=== PATIENT | female | born 1960 | race Caucasian/White ===

== ENCOUNTER 2025-07-05 14:12 | Emergency (ER) | payer OTHER, SELFPAY ==
--- OUTSIDE RECORDS SUMMARY | 2004-10-31 09:30 | XMS_ITS | Continuity of Care Document ---
Author Organization [facility] Address [address] [place] [address] [place] [address] Phone Care Team Providers Care Pit Steward Name Role Phone Nelson Amaya MD Unavailable Unavailable Advance Directives Directive Yes / No Effective Date File Name No Information Encounters Encounter Description Practice Location Reason(s) For Visit Diagnoses Date Provider Providers Copied on Encounter [facility], [address], [place], [place], [address], [place] tel:[phone] SEC Ryan [place] Professional No Information 4-200 5 Monique Damon. [address] [facility] [address], [place], [place], [address], [place]. tel:[phone] Family History Family Member Type Diagnosis Age At Onset No Information Payers Payer name Insurance type Covered constitution party ID Authoriza tion(s) No Information Social History Type Description Quantity Date Captured Comments Sex Female Smoking Status No Information Chief Complaint And Reason For Visit No Information Reason For Referral Reason For Referral No Information History Of Present Illness Encounter Date Complaint History Of Prese nt Illness No Information Functional Status Date Functional Assessmen t No Information Instructions Date Instruction Additional Infor mation No Information Assessments Type Assessment Date No Information Patient Care Teams Name Effective Dates (start - stop) Status Members No Information
--- OUTSIDE RECORDS SUMMARY | 2004-10-31 09:30 | XMS_ITS | Continuity of Care Document ---
Author Organization [facility] Address [address] [place] [address] [place] [address] Phone Care Team Providers Care Radar Repairer Name Role Phone Nelson Amaya MD Unavailable Unavailable Advance Directives Directive Yes / No Effective Date File Name No Information Encounters Encounter Description Practice Location Reason(s) For Visit Diagnoses Date Provider Providers Copied on Encounter [facility], [address], [place], [place], [address], [place] tel:[phone] SEC Ryan [place] Professional No Information 4-200 5 Monique Damon. [address] [facility] [address], [place], [place], [address], [place]. tel:[phone] Family History Family Member Type Diagnosis Age At Onset No Information Payers Payer name Insurance type Covered republican ID Authoriza tion(s) No Information Social History [...]
--- OUTSIDE RECORDS SUMMARY | 2004-10-31 09:30 | XMS_ITS | Continuity of Care Document ---
Author Organization [facility] Address [address] [place] [address] [place] [address] Phone Care Team Providers Care Science Specialist Name Role Phone Nelson Amaya MD Unavailable Unavailable Advance Directives Directive Yes / No Effective Date File Name No Information Encounters Encounter Description Practice Location Reason(s) For Visit Diagnoses Date Provider Providers Copied on Encounter [facility], [address], [place], [place], [address], [place] tel:[phone] SEC Ryan [place] Professional No Information 4-200 5 Monique Damon. [address] [facility] [address], [place], [place], [address], [place]. tel:[phone] Family History Family Member Type Diagnosis Age [...]
--- OUTSIDE RECORDS SUMMARY | 2004-10-31 09:30 | XMS_ITS | Continuity of Care Document ---
Author Organization [facility] Address [address] [place] [address] [place] [address] Phone Care Team Providers Care Field Artillery Operations Specialist Name Role Phone Nelson Amaya MD Unavailable Unavailable Advance Directives Directive Yes / No Effective Date File Name No Information Encounters Encounter Description Practice Location Reason(s) For Visit Diagnoses Date Provider Providers Copied on Encounter [facility], [address], [place], [place], [address], [place] tel:[phone] SEC Ryan [place] Professional No Information 4-200 5 Monique Damon. [address] [facility] [address], [place], [place], [address], [place]. tel:[phone] Family History Family Member Type Diagnosis Age At Onset No Information Payers Payer name Insurance type Covered libertarian ID Authoriza tion(s) No Information Social History [...]
--- OUTSIDE RECORDS SUMMARY | 2004-10-31 09:30 | XMS_ITS | Continuity of Care Document ---
Author Organization [facility] Address [address] [place] [address] [place] [address] Phone Care Team Providers Care Drop Worker Name Role Phone Nelson Amaya MD Unavailable Unavailable Advance Directives Directive Yes / No Effective Date File Name No Information Encounters Encounter Description Practice Location Reason(s) For Visit Diagnoses Date Provider Providers Copied on Encounter [facility], [address], [place], [place], [address], [place] tel:[phone] SEC Ryan [place] Professional No Information 4-200 5 Monique Damon. [address] [facility] [address], [place], [place], [address], [place]. tel:[phone] Family History Family Member Type Diagnosis Age [...]
--- OUTSIDE RECORDS SUMMARY | 2004-10-31 09:30 | XMS_ITS | Continuity of Care Document ---
Author Organization [facility] [place] [facility] Address [address] [place] [address] [place] [address] Phone Care Team Providers Care Milling Operator Name Role Phone Nelson Amaya MD Unavailable Unavailable Advance Directives Directive Yes / No Effective Date File Name No Information Encounters Encounter Description Practice Location Reason(s) For Visit Diagnoses Date Provider Providers Copied on Encounter [facility], [address], [place], [place], [address], [place] tel:[phone] SEC Ryan [place] Professional No Information 4-200 5 Monique Damon. [address] [facility] [address], [place], [place], [address], [place]. tel:[phone] Family History Family Member Type Diagnosis Age At Onset No Information Payers Payer name Insurance type Covered green party ID Authoriza tion(s) No Information Social [...]
--- OUTSIDE RECORDS SUMMARY | 2004-10-31 09:30 | XMS_ITS | Continuity of Care Document ---
Author Organization [facility] Address [address] [place] [address] [place] [address] Phone Care Team Providers Care Gate Operator Name Role Phone Nelson Amaya MD Unavailable Unavailable Advance Directives Directive Yes / No Effective Date File Name No Information Encounters Encounter Description Practice Location Reason(s) For Visit Diagnoses Date Provider Providers Copied on Encounter [facility], [address], [place], [place], [address], [place] tel:[phone] SEC Ryan [place] Professional No Information 4-200 5 Monique Damon. [address] [facility] [address], [place], [place], [address], [place]. tel:[phone] Family History Family Member Type Diagnosis Age [...]
--- OUTSIDE RECORDS SUMMARY | 2004-10-31 09:30 | XMS_ITS | Continuity of Care Document ---
Author Organization [facility] Address [address] [place] [address] [place] [address] Phone Care Team Providers Care Veterinary Inspector Name Role Phone Nelson Amaya MD Unavailable Unavailable Advance Directives Directive Yes / No Effective Date File Name No Information Encounters Encounter Description Practice Location Reason(s) For Visit Diagnoses Date Provider Providers Copied on Encounter [facility], [address], [place], [place], [address], [place] tel:[phone] SEC Ryan [place] Professional No Information 4-200 5 Monique Damon. [address] [facility] [address], [place], [place], [address], [place]. tel:[phone] Family History Family Member Type Diagnosis Age [...]
--- OUTSIDE RECORDS SUMMARY | 2004-10-31 09:30 | XMS_ITS | Continuity of Care Document ---
Author Organization [facility] Address [address] [place] [address] [place] [address] Phone Care Team Providers Care Dependency Program Director Name Role Phone Nelson Amaya MD Unavailable Unavailable Advance Directives Directive Yes / No Effective Date File Name No Information Encounters Encounter Description Practice Location Reason(s) For Visit Diagnoses Date Provider Providers Copied on Encounter [facility], [address], [place], [place], [address], [place] tel:[phone] SEC Ryan [place] Professional No Information 4-200 5 Monique Damon. [address] [facility] [address], [place], [place], [address], [place]. tel:[phone] Family History Family Member Type Diagnosis Age [...]
--- OUTSIDE RECORDS SUMMARY | 2004-10-31 09:30 | XMS_ITS | Continuity of Care Document ---
Author Organization [facility] Address [address] [place] [address] [place] [address] Phone Care Team Providers Care Pigment Furnace Tender Name Role Phone Nelson Amaya MD Unavailable Unavailable Advance Directives Directive Yes / No Effective Date File Name No Information Encounters Encounter Description Practice Location Reason(s) For Visit Diagnoses Date Provider Providers Copied on Encounter [facility], [address], [place], [place], [address], [place] tel:[phone] SEC Ryan [place] Professional No Information 4-200 5 Monique Damon. [address] [facility] [address], [place], [place], [address], [place]. tel:[phone] Family History Family Member Type Diagnosis Age [...]
--- OUTSIDE RECORDS SUMMARY | 2004-10-31 09:30 | XMS_ITS | Continuity of Care Document ---
Author Organization [facility] Address [address] [place] [address] [place] [address] Phone Care Team Providers Care Unix Engineer Name Role Phone Nelson Amaya MD Unavailable Unavailable Advance Directives Directive Yes / No Effective Date File Name No Information Encounters Encounter Description Practice Location Reason(s) For Visit Diagnoses Date Provider Providers Copied on Encounter [facility], [address], [place], [place], [address], [place] tel:[phone] SEC Ryan [place] Professional No Information 4-200 5 Monique Damon. [address] [facility] [address], [place], [place], [address], [place]. tel:[phone] Family History Family Member Type Diagnosis Age At Onset No Information Payers Payer name Insurance type Covered alliance party ID Authoriza tion(s) No Information Social [...]
--- OUTSIDE RECORDS SUMMARY | 2004-10-31 09:30 | XMS_ITS | Continuity of Care Document ---
Author Organization [facility] Address [address] [place] [address] [place] [address] Phone Care Team Providers Care Locomotive Supervisor Name Role Phone Nelson Amaya MD Unavailable Unavailable Advance Directives Directive Yes / No Effective Date File Name No Information Encounters Encounter Description Practice Location Reason(s) For Visit Diagnoses Date Provider Providers Copied on Encounter [facility], [address], [place], [place], [address], [place] tel:[phone] SEC Ryan [place] Professional No Information 4-200 5 Monique Damon. [address] [facility] A, [place], [place], [address], [place]. tel:[phone] Family History Family Member Type Diagnosis Age [...]
--- OUTSIDE RECORDS SUMMARY | 2004-10-31 09:30 | XMS_ITS | Continuity of Care Document ---
Author Organization [facility] Address [address] [place] [address] [place] [address] Phone Care Team Providers Care Material Flow Analyst Name Role Phone Nelson Amaya MD Unavailable Unavailable Advance Directives Directive Yes / No Effective Date File Name No Information Encounters Encounter Description Practice Location Reason(s) For Visit Diagnoses Date Provider Providers Copied on Encounter [facility], [address], [place], [place], [address], [place] tel:[phone] SEC Ryan [place] Professional No Information 4-200 5 Monique Damon. [address] [facility] [place] [address], [place], [place], [address], [place]. tel:[phone] Family History Family Member Type Diagnosis Age [...]
--- OUTSIDE RECORDS SUMMARY | 2004-10-31 09:30 | XMS_ITS | Continuity of Care Document ---
Author Organization [facility] Address [address] [place] [address] [place] [address] Phone Care Team Providers Care Truant Officer Name Role Phone Nelson Amaya MD Unavailable Unavailable Advance Directives Directive Yes / No Effective Date File Name No Information Encounters Encounter Description Practice Location Reason(s) For Visit Diagnoses Date Provider Providers Copied on Encounter [facility], [address], [place], [place], [address], [place] tel:[phone] SEC Ryan [place] Professional No Information 4-200 5 Monique Damon. [address] [facility] [address], [place], [place], [address], [place]. tel:[phone] Family History Family Member Type Diagnosis Age [...]
--- OUTSIDE RECORDS SUMMARY | 2004-10-31 09:30 | XMS_ITS | Continuity of Care Document ---
Author Organization [facility] Address [address] [place] [address] [place] [address] Phone Care Team Providers Care Metal Coater Name Role Phone Nelson Amaya MD Unavailable Unavailable Advance Directives Directive Yes / No Effective Date File Name No Information Encounters Encounter Description Practice Location Reason(s) For Visit Diagnoses Date Provider Providers Copied on Encounter [facility], [address], [place], [place], [address], [place] tel:[phone] SEC Ryan [place] Professional No Information 4-200 5 Monique Damon. [address] [facility] [address], [place], [place], [address], [place]. tel:[phone] Family History Family Member Type Diagnosis Age [...]
--- OUTSIDE RECORDS SUMMARY | 2004-10-31 09:30 | XMS_ITS | Continuity of Care Document ---
Author Organization [facility] Address [address] [place] [address] [place] [address] Phone Care Team Providers Care Digital Marketing Strategist Name Role Phone Nelson Amaya MD Unavailable Unavailable Advance Directives Directive Yes / No Effective Date File Name No Information Encounters Encounter Description Practice Location Reason(s) For Visit Diagnoses Date Provider Providers Copied on Encounter [facility], [address], [place], [place], [address], [place] tel:[phone] SEC Ryan [place] Professional No Information 4-200 5 Monique Damon. [address] [facility] [address], [place], [place], [address], [place]. tel:[phone] Family History Family Member Type Diagnosis Age [...]
--- NOTE | ~2025-07-05 | XR_ITS ---
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 Findings: No acute fracture or malalignment. Severe degenerative changes of the first metacarpal carpal joint Soft tissues unremarkable. Impression: No acute fracture or malalignment. Reviewed, dictated and finalized at location P. TER RUST ERADICATOR Impression: No acute fracture or malalignment.
--- OUTSIDE RECORDS SUMMARY | 2025-07-05 14:15 | XMS_ITS | Encounter Summary ---
Author Organization [facility] Address [address] [place] [address] Phone Care Team Providers Care Integrity Manager Name Role Phone Anita Rodriguez APRN, SENIOR BIOSTATISTICIAN/GROUP LEADER Unavailable [phone] James Plummer MD Unavailable [phone] Milagro Means APRN, SENIOR BIOSTATISTICIAN/GROUP LEADER Primary [facility] Eric Peres DPCassie Unavailable Unavailable Reason for Visit * Reason Comments Medication Refill Encounter Details Date Type Department Care Team (Late st Contact Info) Description 05/29/2025 Refill [facility] - Primary Care - [place] [address] [place] [address] Milagro Means APRN, SENIOR BIOSTATISTICIAN/GROUP LEADER [address] [place] [address] Medication Refill Social History Tobacco Use Types Packs/Day Years Used Date Smoking Tobacco: Never Smokeless Tobacco: Never Alcohol Use Standard Drinks/Week Comments Yes 0 (1 standard drink = 0.6 oz pur e alcohol) occasional wine PHQ-2 Answer Date Recorded Total Score - Questions 1-9 0 03/21 Education Answer Date Recorded What is the highest level of school you have completed or the highest degree you have received? Bachelor's degree (e.g., BA, AB, BS) 08/10/2020 Sexually Active Control Partners Comments Yes Male Comments No Sex and Gender Information Value Date Recorded Sex Assigned at Not on file Legal Sex Female 10:44 PM CDT Gender Identity Female 11/18/2024 2:56 PM CDT Sexual Orientation Straight 11/18/2024 2: 56 PM CDT Occupation Industry Job Start Date Job End Date [employer] Not on file Not on file Not on file documented as of this encounter Plan of Treatment Upcoming Encounters Date Type Department Care Team (Late st Contact Info) Description 10/12/2025 3:45 PM PRE PRESS OPERATOR Office Visit [facility] - Primary Care - [place] [address] [place] [address] Milagro Means APRN, SENIOR BIOSTATISTICIAN/GROUP LEADER [address] [place] [address] documented as of this encounter Visit Diagnoses Diagnosis Gastroesophageal reflux disease without esophagitis Esophageal reflux documented in this encounter Additional Health Concerns Assessment Noted Time PHQ-9 Depression Total Score: 0 04/14/20 25 3:43 PM CDT documented as of this encounter Care Teams Integrity Manager Relationship Specialty Start Date End Date Milagro Means APRN, SENIOR BIOSTATISTICIAN/GROUP LEADER [address] [place] [address] PCP - General Advanced Practice Nurse 02/18/18 Anita Rodriguez APRN, SENIOR BIOSTATISTICIAN/GROUP LEADER Nurse Practitioner Obstetrics & Gynecology 11/24/15 James Plummer MD General Surgery 07/09/17 Eric Peres DPM Podiatry 03/29/22 documented as of this encounter
--- OUTSIDE RECORDS SUMMARY | 2025-07-05 14:15 | XMS_ITS | Clinical Summary ---
Author Organization [facility] Address [address] [place] [address] Care Team Providers Care Burglary Investigator Name Role Phone Bridger Ruvalcaba MD Primary Care Provider + Anita Rodriguez NP Unavailable [phone] Allergies Active Allergy Reactions Criticality Noted Date Comments Codeine Unknown Erythromycin Hives Medium Reaction: Hives, Medications omeprazole (PriLOSEC) 40 mg capsule take 1 capsule by oral route every day before a meal 0 0 04/22/20 14 Active fluticasone (FLONASE) 50 mcg/actuation nasal spray Administer into each nostril. 12/19/19 18 Active SYNTHROID 50 mcg tablet TAKE 1 TABLET BY MOUTH ONCE DAILY IN THE BOOT REPAIRER BEFORE BREAKFAST 90 tablet 1 06/18/20 18 Active atorvastatin (LIPITOR) 10 mg tablet Take 1 tablet (10 mg total) by mouth daily 05/09/20 19 Active albuterol HFA (PROVENTIL HFA,VENTOLIN HFA,PROAIR HFA) 90 mcg/actuation inhaler Inhale 1-2 puffs every 6 (six) hours as needed 12/19/19 18 Active cetirizine (ZyrTEC) 10 mg tablet 10/17/19 23 Active montelukast (SINGULAIR) 10 mg tablet Take 1 tablet (10 mg total) by mouth nightly 09/05/19 23 Active cholecalciferol (VITAMIN D-3) 2000 unit capsule 1 capsule (2,000 Units total) Active omega-3 fatty acids-fish oil 300-1,000 mg capsule Take 2 capsules (2 g total) by mouth daily Active oxyCODONE (ROXICODONE) 5 mg immediate release tabletIndications:P ain Take 1 tablet (5 mg total) by mouth every 4 (four) hours as needed for pain 15 tablet 04/04/20 23 Active metroNIDAZOLE (METROGEL) 0.75 % (37.5mg/5 gram) vaginal gelIndications:Bact erial Vaginosis Apply to vagina nightly for 5 nights. 70 g 02/07/20 24 Active Additional Information Patient not taking.Reported on 09/08/2024 benzonatate (TESSALON) 200 mg capsuleIndications: Acute nasopharyngitis Take 1 capsule (200 mg total) by mouth 3 (three) times a day as needed for cough keep tessalon out of reach of children, especially children under the age of 10, due to possible serious risk such as if ingested by children under the age of 10. 30 capsule 05/04/20 24 Active Additional Information Patient not taking.Reported on 09/08/2024 ondansetron ODT (ZOFRAN-ODT) 4 mg disintegrating tabletIndications:I nfluenza A,Nausea and vomiting, unspecified vomiting type Take 1 tablet (4 mg total) by mouth every 8 (eight) hours as needed for nausea or vomiting 10 tablet 09/08/19 25 Active semaglutide (OZEMPIC) 0.25 mg or 0.5 mg (2 mg/3 mL) pen injector injection Inject 0.5 mg under the skin once a week 03/09/20 25 Active amoxicillin-clavula arlet (AUGMENTIN) 875-125 mg per tablet Take 1 tablet by mouth 2 (two) times a day for 7 days 14 tablet 05/30/20 25 025 methylPREDNISolone (MEDROL DOSEPACK) 4 mg Dosepack Take as directed on package. 21 tablet 05/30/20 25 025 nitrofurantoin monohydrate (MACROBID) 100 mg capsuleIndications: Urinary Tract/Genitourinary Infection Take 1 capsule (100 mg total) by mouth 2 (two) times a day for 5 days 10 capsule 06/14/20 25 025 Active Problems Problem Noted Date Diagnosed Date Gastroesophageal reflux disease 01/03/2014 Overview (11/22/2016): GERD (gastroesophageal reflux disease) Hypothyroidism 01/03/2014 Overview (11/24/2016): Hypothyroid Seasonal allergic rhinitis 01/03/2014 Overview (11/24/2016): Seasonal allergies Encounters Date Type Department Care Team Description 06/17/2025 Results Follow-Up [facility] Medical [facility] at [address] [phone] Sultana Peacock NP Urine culture Urine, clean voided 06/14/2025 8:30 AM CDT Office Visit [facility] Medical [facility] at [address] [phone] Britta You NP Acute cystitis with hematuria (Primary Dx) 06/14/2025 8:23 AM CDT - 06/14/2025 11:59 PM CD[place] [address] Acute cystitis with hematuria Discharge Disposition: Discharge to home or self care 05/30/2025 9:30 AM CDT Office Visit [facility] Medical [facility] at [address] [phone] Heide Gaston PA Acute non-recurrent pansinusitis (Primary Dx) from Last 3 Months Surgical History Surgery Date Site/Laterality Comments OTHER SURGICAL HISTORY 08/20/2004 - 08/19/2005 Appendicitis: Appendectomy OTHER SURGICAL HISTORY 08/20/1988 - 08/19/1989 Ovarian cyst: laparoscopy & cyst removal OTHER SURGICAL HISTORY 08/20/1986 - 08/19/1987 : 21 hr labor OTHER SURGICAL HISTORY 08/20/1982 - 08/19/1983 : spontaneous , D & C OTHER SURGICAL HISTORY Lap diagnostic x 2 APPENDECTOMY 1996 Medical History Medical History Date Comments Hx Other Medical 1995 Appendicitis; O utcome: successful Cyst of ovary 1985 Ovarian cyst Female infertility Infertility Disorder of thyroid Thyroid dise ase Hyperlipidemia Hyperlipidemia Hx Other Medical 1986 ; Outc ome: 40 week 6 lb(s) 13 oz Male Hx Other Medical 1982 ; Outc ome: Unknown sex GERD (gastroesophageal reflux disease) Family History Medical History Relation Name Comments Heart disease Father Prince Cardozo Heart disease ; Heart disease Maternal Grandfather Georges Potts Heart disease; Osteoporosis Maternal Grandmother Osteopo rosis; Breast cancer Mother Isabela Cardozo Cancer, breast ; Cancer Mother Isabela Cardozo Heart disease Mother's Sister 1 Keke Sky Heart dis ease; Hyperlipidemia Mother's Sister 2 Hyperlip idemia; Stroke Paternal Grandfather Prince Cardozo Sr. St [place]; Thyroid disease Sister Thyroid dise ase; Colon cancer Neg Hx Ovarian cancer Neg Hx Thyroid cancer Neg Hx Uterine cancer Neg Hx Relation Name Status Comments Father Prince Cardozo Maternal Grandfather Georges Potts Maternal Grandmother Mother Isabela Cardozo Mother's Sister 1 Keke Sky Mother's Sister 2 Paternal Grandfather Prince Cradozo Sr. Sister Social History Tobacco Use Types Packs/Day Years Used Date Smoking Tobacco: Never Smokeless Tobacco: Never Alcohol Use Standard Drinks/Week Comments Not Currently 0 (1 standard drink = 0.6 oz pur e alcohol) Humiliation, Afraid, Rape, and Kick questionnair e Answer Date Recorded Within the last year, have y ou been afraid of your partner or ex-partner? No 02/22/2024 Within the last year, have y ou been humiliated or emotionally abused in other ways by your partner or ex-partner? No Within the last year, have y ou been kicked, hit, slapped, or otherwise physically hurt by your partner or ex-partner? No 02/22/2024 Within the last year, have y ou been raped or forced to have any kind of sexual activity by your partner or ex-partner? No 02/22/2024 PHQ-2 Answer Date Recorded PHQ-2 Total Score (If total score is 3 or more points, staff should administer the PHQ-9) 0 03/13/2025 Personal Safety Answer Date Recorded Have you ever been in or are you currently in a harmful physical or emotional relationship or is someone making you feel afraid or unsafe? Denies 04/04/2023 Comments No Sex and Gender Information Value Date Recorded Sex Assigned at Not on file Legal Sex Female 1:53 AM RESAW FEEDER Gender Identity Not on file Sexual Orientation Not on file Obstetrics History Para Term AB IAB SAB Ectopic Multiple Livin g Live Births 2 1 1 1 1 1 1 Date Outcome GA Total Labor Labor/2nd/3rd Weight Sex Type Anes PTL Rose Mary A1 A5 Name Clin Term Vag-Spo nt SAB Last Filed Vital Signs Vital Sign Reading Time Taken Comments Blood Pressure 117/82 06/14/2025 8:30 AM CDT Pulse 72 06/14/2025 8:30 AM CDT Temperature 36.7 C (98.1 F) 06/14/2025 8:30 AM CDT Respiratory Rate 18 06/14/2025 8:30 AM CDT Oxygen Saturation 98% 06/14/2025 8:30 AM CDT Inhaled Oxygen Concentration - - Weight 74.4 kg (164 lb) 06/14/2025 8:30 AM CDT Height 154.9 cm (5' 1) 01/03/2025 1:40 PM CDT Body Mass Index 30.99 01/03/2025 1:40 PM CDT Plan of Treatment Health Maintenance Due Date Last Done Comments Colon Cancer Screening-Colonoscopy 1961 Hepatitis C Screening 1961 Hepatitis B Screening 1979 Pneumococcal vaccine <65 (2 of 2 - PCV) 08/20/2005 08/20/2004 Zoster Vaccine (1 of 2) 2011 Covid-19 Vaccine (4 - 2024-2 6 season) 2025 03/07/2022, 10/12/2020, 09/14/2020 Influenza Vaccine (#1) 2025 , 08/15/2021, 04/23/2019, Additional history exists Breast Cancer Screening-Mammogram 01/03/2026 01/03/2025, 08/24/2022, 08/18/2021, Additional history exists Cervical Cancer Screening 03/13/20262024, 02/22/2024, 12/22/2021, Additional history exists Depression Screening 03/13/2026 03/13/2025, 02/22/2024, 01/04/2023, Additional history exists Regular Well Visit/Exam 18-64 03/13/2026, 02/22/2024, 01/04/2023, Additional history exists DTaP/Tdap/Td Vaccine (3 - Td or Tdap) 12/11/2026 12/11/2016, 08/20/2005 Procedures Procedure Name Priority Date/Time Associated Diagnosis Comments POCT URINALYSIS DIPSTICK Routine 06/14/2025 8:33 AM CDT Acute cystitis with hematuria URINE CULTURE Routine 06/14/2025 8:23 AM CDT Acute cystitis with hematuria PAP, REFLEX HPV Routine 03/13/2025 9:59 AM CDT Well woman exam SCREENING MAMMOGRAM BILATERAL W ABRAM Schedule Routine, Read Routine (OP Routine) 01/03/2025 1:48 PM CDT Encounter for screening mammogram for malignant neoplasm of breast from Last 3 Months or Most Recently Relevant to Health Maintenance Results * (ABNORMAL) POCT urinalysis dipstick (06/14/2025 8:33 AM CDT) Color, Urine, POC Yellow Clarity, ur, POC Cloudy(A) Clear Glucose, ur, POC Negative Negative Bilirubin, ur, POC Negative Negative Ketones, ur, POC Negative Negative Specific [place], POC 1.025 1.003 - 1.030 Blood, ur, POC Hemolyzed, trace(A) Negative pH, ur, POC 5.5 5.0 - 8.0 Protein, ur, POC Negative Negative Urobilinogen, urine, POC 1.0 0.2 - 1.0 mg/dL Nitrite, ur, POC Negative Negative Leukocytes, ur, POC Small(A) Negative Lot Number [id number] Urine 06/14/2025 8:33 AM CDT Britta You NP POINT OF CARE TEST ORDERABLES Final Result * (ABNORMAL) Urine culture Urine, clean voided (06/14/2025 8:23 AM CDT) Report Final Report: Greater than or equal to 100,000 colonies/mL of Escherichia coli Greater than or equal to 100,000 colonies/mL of Klebsiella pneumoniae Plus growth of clinically insignificant bacterial rafael. (.) Comment:Testing performed by : [facility], [address] [place]., [address] Organism [facility] Organism [facility] Organism PLUS GROWTH OF CLINICALLY INSIGNIFICANT RAFAEL. [facility] Urine, clean voided 06/14/2025 8:23 AM CDT 06/14/2025 4:52 PM CDT Narrative NGHIANER CH - 06/17/2025 9:30 AM CDT Testing performed by [facility] Microbiology Laboratory ([phone]) Organism Antibiotic Method Susceptibility Escherichia coli Ampicillin INTERPRETATION Susceptible Escherichia coli Cefazolin INTERPRETATION Susceptible Escherichia coli Nitrofurantoin INTERPRETATION Susceptible Escherichia coli Gentamicin INTERPRETATION Susceptible Escherichia coli Trimethoprim with Sulfamethoxazole INTERPRETATION Susceptible Escherichia coli Meropenem INTERPRETATION Susceptible Escherichia coli Cefepime INTERPRETATION Susceptible Escherichia coli Ciprofloxacin INTERPRETATION Susceptible Escherichia coli Ceftazidime INTERPRETATION Susceptible Escherichia coli Ceftriaxone INTERPRETATION Susceptible Escherichia coli Piperacillin/Tazobactam INTERPRETATIO N Susceptible Escherichia coli Cephalexin INTERPRETATION Susceptible Escherichia coli Cefuroxime-axetil INTERPRETATION Susceptible Escherichia coli Cefdinir INTERPRETATION Susceptible Klebsiella pneumoniae Ampicillin INTERPRETATION Resistant Klebsiella pneumoniae Cefazolin INTERPRETATION Susceptible Klebsiella pneumoniae Nitrofurantoin INTERPRETATION Susceptible Klebsiella pneumoniae Gentamicin INTERPRETATION Susceptible Klebsiella pneumoniae Trimethoprim with Sulfamethoxazole INTERPRETATION Susceptible Klebsiella pneumoniae Meropenem INTERPRETATION Susceptible Klebsiella pneumoniae Cefepime INTERPRETATION Susceptible Klebsiella pneumoniae Ciprofloxacin INTERPRETATION Susceptible Klebsiella pneumoniae Ceftazidime INTERPRETATION Susceptible Klebsiella pneumoniae Ceftriaxone INTERPRETATION Susceptible Klebsiella pneumoniae Piperacillin/Tazobactam INTERPRE TATION Susceptible Klebsiella pneumoniae Cephalexin INTERPRETATION Susceptible Klebsiella pneumoniae Cefuroxime-axetil INTERPRETATION Susceptible Klebsiella pneumoniae Cefdinir INTERPRETATION Susceptible us Britta You NP LAB MICROBIOLOGY - GENERAL ORD ERABLES Final Result [facility] [address] Department [place] [address] * Pap, reflex HPV (03/13/2025 9:59 AM CDT) Clinical indication Comment [facility] - 01 Comment:NEGATIVE FOR INTRAEP ITHELIAL LESION OR MALIGNANCY. Specimen adequacy: Comment [facility] - 01 Comment: Satisfactory for evaluation. Endocervical and/or squamous metaplastic cells (endocervical component) are present. Clinician provided ICD10 Comment [facility] 02 Comment:[id number] Performed by Comment [facility] - 01 Comment:Inna Gaona, Cyto logist (ASCP) . . [facility] - 01 Note: Comment [facility] 02 Comment: The Pap smear is a screening test designed to aid in the detection of premalignant and malignant conditions of the uterine cervix. It is not a diagnostic procedure and should not be used as the sole means of detecting cervical cancer. Both false-positive and false-negative reports do occur. Test methodology Comment [facility] 02 Comment: This liquid based ThinPrep(R) pap test was screened with the use of an image guided system. . Comment [facility] - 01 Comment: The HPV DNA reflex criteria were not met with this specimen result therefore, no HPV testing was performed. Thin prep 03/13/2025 9:59 AM CDT 03/13/2025 Narrative [facility] - 03/19/2025 7:09 AM CDT Performed at: - [address] [id number] Statue Carver: Robert Logan PhD, Phone: [phone] Performed at: [address] [id number] Statue Carver: Erika Andres MD, Phone: [phone] Specimen Comment: [id number] Specimen Comment: No. of containers..01 ThinPrep Vial us Mavis Bowen RELISH BLENDER LAB CYTOLOGY ORDERABLES Fin al [facility] - 01 [facility] 02 * Screening Mammogram Bilateral W Abram (01/03/2025 1:48 PM CDT) Anatomical Region Laterality Modality Breast Bilateral Mammography Impressions 01/05/2025 8:32 AM CDT Bilateral No evidence of malignancy in either breast. OVERALL BI-RADS FINAL ASSESSMENT: 1 - Negative RECOMMENDATION: Recommend bilateral annual screening mammography. Narrative 01/05/2025 8:32 AM CDT EXAMINATION: Screening Mammogram Bilateral W Abram: 01/03/2025 COMPARISON: Relevant prior studies available at the time of interpretation were reviewed. TECHNIQUE: Mammography was performed with 2D and digital breast tomosynthesis (DBT) images. CAD was utilized. BREAST PARENCHYMAL COMPOSITION: The breasts are almost entirely fatty. FINDINGS: Bilateral There is no suspicious mass, calcification, or architectural distortion in either breast. aMvis Bowen RELISH BLENDER IMG MAMMO PROCEDURES Final Result from Last 3 Months or Most Recently Relevant to Health Maintenance Insurance CHOICE PL[facility] CHOICE PLUS [employer] COMPENSATION GENERIC Care Teams Burglary Investigator Relationship Specialty Start Date End Date Bridger Ruvalcaba MD PCP - General 05/11/16 Anita Rodriguez, LISA [address] [facility] [address] [address] Nurse Practitioner Obstetrics and Gynecology 08/02/23
--- OUTSIDE RECORDS SUMMARY | 2025-07-05 14:15 | XMS_ITS | Encounter Summary ---
Author Organization [facility] Address [address] [place] [address] Phone Care Team Providers Care Academic Program Specialist Name Role Phone Anita Rodriguez APRN, CERTIFIED ALCOHOL COUNSELOR Unavailable [phone] James Plummer MD Unavailable [phone] Milagro Means APRN, CERTIFIED ALCOHOL COUNSELOR [facility] Eric Peres DPCassie Unavailable Unavailable Reason for Visit * Reason Comments Medication Refill Encounter Details Date Type Department Care Team (Late st Contact Info) Description 03/06/2024 Refill [facility] - Primary Care - [place] [address] [place] [address] Milagro Means APRN, CERTIFIED ALCOHOL COUNSELOR [address] [place] [address] Medication Refill Social History Tobacco Use Types Packs/Day Years Used Date Smoking Tobacco: Never Smokeless Tobacco: Never Alcohol Use Standard Drinks/Week Comments Yes 0 (1 standard drink = 0.6 oz pur e alcohol) occasional wine PHQ-2 Answer Date Recorded Total Score - Questions 1-9 0 01/19 Education Answer Date Recorded What is the [...] st Contact Info) Description 10/12/2025 3:45 PM LOTTERY OFFICE MANAGER Office Visit [facility] - Primary Care - [place] [address] [place] [address] Milagro Means APRN, CERTIFIED ALCOHOL COUNSELOR [address] [place] [address] documented as of this encounter Visit Diagnoses Diagnosis Hypothyroidism due to acquired atrophy of thyroid Gastroesophageal reflux disease without esophagitis Esophageal reflux documented in this encounter Additional Health Concerns Assessment Noted Time PHQ-9 Depression Total Score: 0 02/12/20 21 8:00 AM CDT documented as of this encounter Care Teams Academic Program Specialist Relationship Specialty Start Date End Date Milagro Means APRN, CERTIFIED ALCOHOL COUNSELOR [address] [place] [address] PCP - General Advanced Practice Nurse 02/18/18 Anita Rodriguez APRN, CERTIFIED ALCOHOL COUNSELOR Nurse Practitioner Obstetrics & Gynecology 11/24/15 James Plummer MD General Surgery 07/09/17 Eric Peres DPM Podiatry 03/29/22 documented as of this encounter
--- OUTSIDE RECORDS SUMMARY | 2025-07-05 14:15 | XMS_ITS | Encounter Summary ---
Author Organization [facility] Address [address] [place] [address] Phone Care Team Providers Care Beam Warper Name Role Phone Anita Rodriguez APRN, CHILDCARE CENTER DIRECTOR Unavailable [phone] James Plummer MD Unavailable Milagro Means APRN, CHILDCARE CENTER DIRECTOR [facility] Eric Peres DPCassie Unavailable Unavailable Reason for Visit * Reason Comments Medication Refill Encounter Details Date Type Department Care Team (Late st Contact Info) Description 02/11/2024 Refill [facility] - Primary Care - [place] [address] [place] [address] Milagro Means APRN, CHILDCARE CENTER DIRECTOR [address] [place] [address] Medication Refill Social History Tobacco [...] st Contact Info) Description 10/12/2025 3:45 PM GAS LINE INSTALLER SUPERVISOR Office Visit [facility] - Primary Care - [place] [address] [place] [address] Milagro Means APRN, CHILDCARE CENTER DIRECTOR [address] [place] [address] documented as of this encounter Visit Diagnoses Diagnosis Mild intermittent asthma without complication Unspecified asthma documented in this encounter Additional Health Concerns Assessment Noted Time PHQ-9 Depression Total Score: 0 02/12/20 21 8:00 AM CDT documented as of this encounter Care Teams Beam Warper Relationship Specialty Start Date End Date Milagro Means APRN, CHILDCARE CENTER DIRECTOR [address] [place] [address] PCP - General Advanced Practice Nurse 02/18/18 Anita Rodriguez APRN, CHILDCARE CENTER DIRECTOR Nurse Practitioner Obstetrics & Gynecology 11/24/15 James Plummer MD General Surgery 07/09/17 Eric Peres DPM Podiatry 03/29/22 documented as of this encounter
--- OUTSIDE RECORDS SUMMARY | 2025-07-05 14:15 | XMS_ITS | Encounter Summary ---
Author Organization [facility] Address [address] [place] [address] Care Team Providers Care Customer Logistics Manager Name Role Phone Bridger Ruvalcaba MD Primary Care Provider + Anita Rodriguez NP Unavailable [phone] Encounter Details Date Type Department Care Team (Late st Contact Info) Description 06/17/2025 Results Follow-Up [facility] Convenient Care at [address] [address] Sultana Peacock, LISA [address] [place] [address] Urine culture Urine, clean voided Social History Tobacco Use Types Packs/Day Years [...] on file Legal Sex Female 1:53 AM RELAYS DRAFTSPERSON Gender Identity Not on file Sexual Orientation Not on file documented as of this encounter Miscellaneous Notes * Result Encounter Note - Elizabeth Sy LPN - 06/24/2025 8:36 AM RELAYS DRAFTSPERSON Notified pt of their results and follow up instructions. Pt verbalized understanding. YS DRAFTSPERSON * Result Encounter Note - Elizabeth Sy LPN - 06/24/2025 8:13 AM RELAYS DRAFTSPERSON LVM for pt to return call to clinic to notify them of labs results. YS DRAFTSPERSON * Result Encounter Note - Elizabeth yS LPN - 06/23/2025 10:04 AM RELAYS DRAFTSPERSON LVM for pt to return call to clinic to notify them of labs results. YS DRAFTSPERSON documented in this encounter Plan of Treatment Not on file documented as of this encounter Visit Diagnoses Not on filedocumented in this encounter Care Teams Customer Logistics Manager Relationship Specialty Start Date End Date Bridger Ruvalcaba MD PCP - General 05/11/16 Anita Rodriguez NP [address] [facility] [address] [address] [address] Nurse Practitioner Obstetrics and Gynecology 08/02/23 documented as of this encounter
--- OUTSIDE RECORDS SUMMARY | 2025-07-05 14:15 | XMS_ITS | Encounter Summary ---
Author Organization [facility] Address [address] [place] [address] Phone Care Team Providers Care Applicator Sprayer Name Role Phone Anita Rodriguez APRN, GLOBAL VP CREATIVE + CONTENT MARKETING Unavailable [phone] James Plummer MD Unavailable Milagro Means APRN, GLOBAL VP CREATIVE + CONTENT MARKETING [facility] Eric Peres DPCassie Unavailable Unavailable Reason for Visit * Reason Comments Medication Refill Encounter Details Date Type Department Care Team (Late st Contact Info) Description 07/24/2023 Refill [facility] - Primary Care - [place] [address] [place] [address] Milagro Means APRN, GLOBAL VP CREATIVE + CONTENT MARKETING [address] [place] [address] Medication Refill Social History Tobacco Use Types Packs/Day Years Used Date Smoking Tobacco: Never Smokeless Tobacco: Never Alcohol Use Standard Drinks/Week Comments Yes 0 (1 standard drink = 0.6 oz pur e alcohol) Social PHQ-2 Answer Date Recorded Total Score - [...] st Contact Info) Description 10/12/2025 3:45 PM TUBE MACHINE OPERATOR Office Visit [facility] - Primary Care - [place] [address] [place] [address] Milagro Means APRN, GLOBAL VP CREATIVE + CONTENT MARKETING [address] [place] [address] documented as of this encounter Visit Diagnoses Diagnosis Mild intermittent asthma without complication Unspecified asthma documented in this encounter Additional Health Concerns Infection Onset Date Last Indicated Resolved Time Respiratory Rule-Out 12/10/2023 12/10/2023 024 4:16 PM CDT COVID - 19 12/10/2023 12/10/2023 12/10/2023 4:07 PM CDT Assessment Noted Time PHQ-9 Depression Total Score: 0 02/12/20 21 8:00 AM CDT documented as of this encounter Care Teams Applicator Sprayer Relationship Specialty Start Date End Date Milagro Means APRN, GLOBAL VP CREATIVE + CONTENT MARKETING [address] [place] [address] PCP - General Advanced Practice Nurse 02/18/18 Anita Rodriguez APRN, GLOBAL VP CREATIVE + CONTENT MARKETING Nurse Practitioner Obstetrics & Gynecology 11/24/15 James Plummer MD General Surgery 07/09/17 Eric Peres DPM Podiatry 03/29/22 documented as of this encounter
--- OUTSIDE RECORDS SUMMARY | 2025-07-05 14:16 | XMS_ITS | Clinical Summary ---
Author Organization [facility] Address [address], [address] [address] Phone Care Team Providers Care Foundry Finisher Name Role Phone Anita Rodriguez APRN, MARINE FARMER Unavailable [phone] James Plummer MD Unavailable Milagro Means APRN, MARINE FARMER Primary Care P rovider Eric Peres DPM Unavailable Unavailable Allergies Active Allergy Reactions Criticality Noted Date Comments Codeine Nausea Medium Headaches Erythromycin Hives,Itching High 12/11/2016 Medications Austin-3 Fatty Acids (FISH OIL PO) Take by mouth. Activ e albuterol (ProAir HFA) 108 (90 Base) MCG/ACT Aerosol SolutionIndicati ons:Allergic rhinitis due to other allergic trigger, unspecified seasonality,Mild intermittent asthma without complication take 1-2 Puffs by inhalation every 6 hours as needed for Wheezing. 8.5 g 3 020 Active Azelastine HCl 0.15 % SolutionIndicati ons:PNAR (perennial non-allergic rhinitis) Two sprays each nostril twice daily. 1 Inhaler 6 020 Active ibuprofen (MOTRIN) 200 MG Tablet Take 200 mg by mouth every 8 hours as needed. Active VITAMIN D PO Take by mouth. Ac tive fluticasone (FLONASE) 50 MCG/ACT SuspensionIndica tions:Mild intermittent asthma without complication USE 1 TO 2 SPRAYS IN EACH NOSTRIL DAILY DIRECTED 48 g 1 023 Active scopolamine (TRANSDERM-SCOP) 1 MG/3DAYS PATCH 72 HRIndications:Mo tion sickness, initial encounter Apply per instructions to scalp behind ear 4 hours before boarding ship; change patch in 3 days 5 Patch 025 Active levothyroxine (SYNTHROID) 50 MCG TabletIndication s:Hypothyroidism due to acquired atrophy of thyroid TAKE 1 TABLET DAILY 90 Tablet 1 025 Active cetirizine (ZyrTEC) 10 MG TabletIndication s:PNAR (perennial non-allergic rhinitis) Take 1 Tablet by mouth daily. 90 Tablet 025 Active ondansetron (ZOFRAN) 4 MG TabletIndication s:Nausea Take 1 Tablet by mouth every 8 hours as needed for Nausea - 1st line. 15 Tablet 025 Active montelukast (SINGULAIR) 10 MG TabletIndication s:Mild intermittent asthma without complication TAKE 1 TABLET EVERY EVENING 90 Tablet 1 025 Active omeprazole (PriLOSEC) 40 MG CAPSULE DELAYED RELEASEIndicatio ns:Gastroesophag eal reflux disease without esophagitis TAKE 1 CAPSULE DAILY 90 Capsule 1 025 Active Ozempic, 2 MG/DOSE, 8 MG/3ML Solution Pen-injector 2 mg by Subcutaneous route once a week. 3 mL 025 Active atorvastatin (LIPITOR) 20 MG TabletIndication s:Mixed hyperlipidemia TAKE 1 TABLET NIGHTLY 90 Tablet 1 025 Active atorvastatin (LIPITOR) 20 MG TabletIndication s:Mixed hyperlipidemia TAKE 1 TABLET NIGHTLY 90 Tablet 3 024 2024 Discontinued Ozempic, 1 MG/DOSE, 4 MG/3ML Solution Pen-injector INJECT 1MG SUBCUTANEOUSLY ONCE A WEEK 3 mL 025 2024 Discontinued(D ose adjustment) Active Problems Problem Noted Date Diagnosed Date Hepatic steatosis 05/02/2019 Benign paroxysmal positional vertigo 02/24/2019 Prediabetes 01/21/2019 Vitamin D deficiency 01/21/2019 Elevated liver enzymes 01/21/2019 UARS (upper airway resistance syndrome) 10/15/19 19 Hypoxia, sleep related 10/15/2018 Sleep-related hypoventilation 10/15/2018 Asthma 10/04/2018 Persistent hypersomnia 06/26/2018 Snoring 06/26/2018 PNAR (perennial non-allergic rhinitis) 8 Hypertrophy of inferior nasal turbinate 06/26/20 18 DNS (deviated nasal septum) 06/26/2018 Nasal obstruction without choanal atresia 2017 Laryngopharyngeal reflux 06/26/2018 Chronic maxillary sinusitis 07/28/2016 Hypothyroidism GERD (gastroesophageal reflux disease) Hyperlipidemia Biliary dyskinesia Encounters Date Type Department Care Team Description 07/03/2025 Refill [facility] - [place] [address] [place] [address] Milagro Means, RANGE CONSERVATIONIST, MARINE FARMER Medication Refill 06/28/2025 Refill [facility] [place] [address] [place] [address] Milagro Means, RANGE CONSERVATIONIST, MARINE FARMER Medication Refill 06/01/2025 Refill [facility] - [address] [place] [address] Milagro Means, RANGE CONSERVATIONIST, MARINE FARMER Medication Refill 05/29/2025 Refill [facility] - [address] [place] [address] Milagro Means, RANGE CONSERVATIONIST, MARINE FARMER Medication Refill 05/04/2025 Refill [facility] - [address] [address] Milagro Means, RANGE CONSERVATIONIST, MARINE FARMER Medication Refill 05/03/2025 Refill [facility] - [place] [address] [place] [address] Milagro Means APRN, CNP Medication Refill 04/14/2025 3:45 PM CDT Office Visit [facility] [address] [place] [address] Milagro Means APRN, CNP Type 2 diabetes mellitus without complication, without long-term current use of insulin (Primary Dx); Mixed hyperlipidemia; Class 1 obesity due to excess calories with serious comorbidity and body mass index (BMI) of 32.0 to 32.9 in adult; Hypothyroidism due to acquired atrophy of thyroid Discharge Disposition: Discharged to home or Selfcare 04/11/2025 Travel 04/04/2025 Refill [facility] - [place] [address] [place] [address] Milagro Means APRN, CNP Medication Refill from Last 3 Months Immunizations Immunization Administration Dates Next Due Covid-19, Mrna, Lnp-s, PF, 1 00 mcg/0.5 mL Dose (Moderna) 10/12/2020,09/14/2020 Covid-19, Mrna, Lnp-s, PF, 5 0 mcg/0.25 mL dose (Moderna) 03/07/2022 DTAP VACCINE 08/20/2005 Influenza Vaccine, Quadrivalent, PF 05/21,08/15/2021,04/23/2019,06/18,07/24/2017,04/29/2015 Influenza Vaccine,unspecifie d Formulation 06/15/2023,08/15/2021,04/23/2019,06/18,07/24/2017,04/29/2015 PUR TDAP 7+ YRS IM 12/11/2016 Pneumococcal Vaccine Adult - 23 Valent 5 Pneumococcal conjugate PCV20 , polysaccharide [id number] conjugate, adjuvant, PF 02/27/2022 TDAP Vaccine 12/11/2016 Family History Medical History Relation Name Comments Heart Attack Maternal Grandfather Breast Cancer Mother Relation Name Status Comments Father Alive Maternal Grandfather Mother Social History Tobacco Use Types Packs/Day Years Used Date Smoking Tobacco: Never Smokeless Tobacco: Never Tobacco Cessation:Counseling Given: No Alcohol Use Standard Drinks/Week Comments Yes 0 [...] file Not on file Not on file Last Filed Vital Signs Vital Sign Reading Time Taken Comments Blood Pressure 114/80 04/14/2025 3:42 PM CDT Pulse 94 04/14/2025 3:42 PM CDT Temperature 36.3 C (97.4 F) 04/14/2025 3:42 PM CDT Respiratory Rate 20 04/14/2025 3:42 PM CDT Oxygen Saturation 98% 04/14/2025 3:42 PM CDT Inhaled Oxygen Concentration - - Weight 78.5 kg (173 lb) 04/14/2025 3:42 PM CDT Height 156.2 cm (5' 1.5) 04/14/2025 3:42 PM CDT Body Mass Index 32.16 04/14/2025 3:42 PM CDT Plan of Treatment Upcoming Encounters Date Type Department Care Team (Late st Contact Info) Description 10/12/2025 3:45 PM HOME SCHOOL COORDINATOR Office Visit [facility] - [place] [address] [place] [address] Milagro Means APRN, MARINE FARMER [address] [place] [address] Health Maintenance Due Date Last Done Comments [email or web address] 2006 Respiratory Syncytial Virus (RSV) Immunization (Adult) (1 - Risk 50-74 years 1-dose series) 2011 Zoster Immunization (1 of 2) 2011 Pap Smear 05/21/2022 05/21/2019, 05/12/2016 Immunochemical Fecal Occult Blood 01/05/2024 01/04/2023, 12/22/2021, 09/14/2020, Additional history exists Influenza Immunization (#1) 04/20/202505/21, 06/15/2023, 08/15/2021, Additional history exists SARS-COV-2 Immunization ( season) 2025 03/07/2022, 06/29/2021, 10/12/2020, Additional history exists Mammogram 01/03/2026 01/03/2025, 12/2022, 08/24/2022, Additional history exists Td Immunization Every 10 Years (Adults With 1 Tdap) 12/11/2026 12/11/2016, 12/11/2016 Cervical Cancer Screening (CCS) 01/05/2028 HPV/Cotest 01/05/2028 01/04/2023 Colonoscopy 05/28/2028 05/28/2023, 04/2023, 10/25/2017, Additional history exists Colorectal Cancer Screening 05/28/2028 Hepatitis C Virus (HCV) Screening Completed 04/24/2019 Pneumococcal Immunization (50+ years) Completed 02/27/2022, 08/20/2004 Pneumococcal Immunization Combined Discontinued 02/27/2022, 08/20/2004 Hepatitis B Immunization Aged Out No longer eligible based on patient's age to complete this topic Human Papillomavirus (HPV) Immunization Aged Out No longer eligible based on patient's age to complete this topic Meningococcal Immunization (ACWY) Aged Out No longer eligible based on patient's age to complete this topic Rotavirus Immunization Aged Out No lo nger eligible based on patient's age to complete this topic Procedures Procedure Name Priority Date/Time Associated Diagnosis Comments CBC WITH AUTO DIFFERENTIAL Routine 04/11/2025 8:39 AM CDT Type 2 diabetes mellitus without complication, without long-term current use of insulin URIC ACID (BLOOD ASSAY) Routine 04/11/2025 8:39 AM CDT Arthralgia of right hand THYROID STIMULATING HORMONE (TSH) Routine 04/11/2025 8:39 AM CDT Hypothyroidism due to acquired atrophy of thyroid LIPID PANEL Routine 04/11/2025 8:39 AM CDT Type 2 diabetes mellitus without complication, without long-term current use of insulin HEMOGLOBIN A1C W/ ESTIMATED GLUCOSE Routine 04/11/2025 8:39 AM CDT Type 2 diabetes mellitus without complication, without long-term current use of insulin CMP (COMPREHENSIVE METABOLIC PANEL) Routine 04/11/2025 8:39 AM CDT Type 2 diabetes mellitus without complication, without long-term current use of insulin COMPLETE BLOOD COUNT (CBC) WITH DIFF Routine 04/11/2025 8:39 AM CDT Type 2 diabetes mellitus without complication, without long-term current use of insulin GI IMAGING - COLONOSCOPY Routine 05/28/2023 10:54 AM CDT CHILO SCREENING BILATERAL DIGITAL W CAD W RITESH Routine 08/18/2021 12:00 AM HOME SCHOOL COORDINATOR Encounter for screening mammogram for malignant neoplasm of breast HEPATITIS PANEL ACUTE (AHP) Routine 04/24/2019 6:40 AM CDT Elevated liver enzymes PATHOLOGY CYTOLOGY SOFTWARE DEVELOPMENT ADVISOR Routine 05/12/2016 from Last 3 Months or Most Recently Relevant to Health Maintenance Results * (ABNORMAL) HEMOGLOBIN A1C W/ ESTIMATED GLUCOSE (04/11/2025 8:39 AM CDT) HGB-A1C 6.2(H) 4.0 - 6.0 % 04/11/2025 9:45 AM CDT [facility] Est Average Glucose 131.2 mg/dL 04/11/2025 9:45 AM CDT [facility] Blood Venipuncture / Unknown 04/11/2025 8:39 AM CDT 04/11/2025 9:35 AM CDT Narrative [facility] - 04/11/2025 9:45 AM CDT HEMOGLOBIN A1C: DIABETIC PATIENTS: WELL-CONTROLLED: 6.2 - 7.0 INTERMEDIATE WELL-CONTROLLED: 7.0 - 9.0 POORLY-CONTROLLED: >9.0 Specimens containing greater than 5% of Hemoglobin F may result in lower than expected % HbA1C results. Milagro Means APRN, CNP CHEMISTRY ORDER JUVENAL Final Result [facility] [address] [place] [address] * (ABNORMAL) CBC WITH AUTO DIFFERENTIAL (04/11/2025 8:39 AM CDT) WBC 6.43 4.00 - 12.00 10(3)/mcL 04/11/2025 9:39 AM CDT [facility] RBC 4.21 3.80 - 5.30 10(6)/mcL 04/11/2025 9:39 AM CDT [facility] HEMOGLOBIN (HGB) 12.5 12.0 - 15.8 g/dL 04/11/2025 9:39 AM CDT [facility] HEMATOCRIT (HCT) 38.2 36.0 - 47.0 % 04/11/2025 9:39 AM CDT [facility] MCV 90.7 82.0 - 96.0 fL 04/11/2025 9:39 AM CDT [facility] MCH 29.7 26.0 - 34.0 pg 04/11/2025 9:39 AM CDT [facility] MCHC 32.7 31.0 - 36.0 g/dL 04/11/2025 9:39 AM CDT [facility] PLATELET COUNT 229 140 - 440 10(3)/mcL 04/11/2025 9:39 AM CDT [facility] RDW 13.2 11.8 - 15.5 % 04/11/2025 9:39 AM CDT [facility] MPV 8.7(L) 9.7 - 12.4 fL 04/11/2025 9:39 AM CDT [facility] NEUTROPHILS 62.4 47.0 - 73.0 % 04/11/2025 9:39 AM CDT [facility] LYMPHOCYTES 26.6 18.0 - 42.0 % 04/11/2025 9:39 AM CDT [facility] MONOCYTES 7.3 4.0 - 12.0 % 04/11/2025 9:39 AM CDT [facility] EOSINOPHILS 3.0 0.0 - 5.0 % 04/11/2025 9:39 AM CDT [facility] BASOPHILS 0.5 0.0 - 1.0 % 04/11/2025 9:39 AM CDT [facility] IMMATURE GRANULOCYTE 0.2 0.0 - 0.4 % 04/11/2025 9:39 AM CDT [facility] ABSOLUTE NEUTROPHILS 4.02 1.60 - 7.70 10(3)/[facility] 04/11/2025 9:39 AM CDT [facility] ABSOLUTE LYMPHOCYTES 1.71 1.30 - 3.20 10(3)/[facility] 04/11/2025 9:39 AM CDT [facility] ABSOLUTE MONOCYTES 0.47 0.20 - 1.00 10(3)/[facility] 04/11/2025 9:39 AM [facility] ABSOLUTE EOSINOPHIL 0.19 0.00 - 0.40 10(3)/[facility] 04/11/2025 9:39 AM CDT [facility] ABSOLUTE BASOPHILS 0.03 0.00 - 0.10 10(3)/[facility] 04/11/2025 9:39 AM CDT [facility] ABSOLUTE IMMATURE GRANULOCYTE 0.01 0.00 - 0.03 10 (3) [facility]. 04/11/2025 9:39 AM [facility] NRBC PER 100 WBC 0 04/11/20 9:39 AM [facility] Blood Venipuncture / Unknown 04/11/2025 8:39 AM CDT 04/11/2025 9:35 AM CDT Milagro Means APRN, CNP HEMATOLOGY ORDE RABDEBBIE Final Result Performing Organization Address City/[facility]/ZIP Co de Phone Number [facility] [address] [place] [address] * URIC ACID (BLOOD ASSAY) (04/11/2025 8:39 AM CDT) Pathologist [facility] URIC ACID 5.6 2.5 - 6.2 mg/dL 04/11/2025 10:00 AM CDT [facility] Blood Venipuncture / Unknown 04/11/2025 8:39 AM CDT 04/11/2025 9:34 AM CDT Milagro Means APRN, CNP CHEMISTRY ORDER JUVENAL Final Result Performing Organization Address City/[facility]/ZIP Co de Phone Number [facility] [address] [place] [address] * THYROID STIMULATING HORMONE (TSH) (04/11/2025 8:39 AM CDT) [facility] TSH 1.346 0.300 - 5.000 mIU/L 04/11/2025 10:17 AM CDT [facility] Blood Venipuncture / Unknown 04/11/2025 8:39 AM CDT 04/11/2025 9:34 AM CDT Milagro Means APRN, CNP CHEMISTRY ORDER JUVENAL Final Result Performing Organization Address City/[facility]/ZIP Co de Phone Number [facility] [address] [place] [address] * (ABNORMAL) LIPID PANEL (04/11/2025 8:39 AM CDT) Pathologist [facility] CHOLESTEROL 113 <200 mg/dL 04/11/2025 10:00 AM CDT [facility] TRIGLYCERIDES 107 <150 mg/dL 04/11/2025 10:00 AM CDT [facility] HDL CHOLESTEROL 30(L) >40 mg/dL 10:00 AM CDT [facility] LDL 62 <130 mg/dL 04/11/2025 10:00 AM CDT [facility] VLDL 21 10 - 50 mg/dL 04/11/2025 10:00 AM CDT [facility] CHOL/HDL RATIO 3.8 0.0 - 4.4 04/11/2025 10:00 AM CDT [facility] NON-HDL CHOLESTEROL 83 <130 mg/dL 04/11/2025 10:00 AM CDT [facility] IS THE PATIENT REQUIRED TO BE FASTING? Yes 04/11/2025 10:00 AM CDT [facility] HAS THE PATIENT BEEN FASTING? Yes 04/11/2025 10:00 AM CDT [facility] Blood Venipuncture / Unknown 04/11/2025 8:39 AM CDT 04/11/2025 9:34 AM CDT us Milagro Means APRN, CNP CHEMISTRY ORDER JUVENAL Final Result [facility] [address] [place] [address] * (ABNORMAL) CMP (COMPREHENSIVE METABOLIC PANEL) (04/11/2025 8:39 AM CDT) SODIUM 141 136 - 145 mmol/L 04/11/2025 10:00 AM CDT [facility] POTASSIUM 4.1 3.5 - 5.1 mmol/L 04/11/2025 10:00 AM CDT [facility] CHLORIDE 106 98 - 107 mmol/L 04/11/2025 10:00 AM CDT [facility] CO2, VENOUS 25 22 - 30 mmol/L 04/11/2025 10:00 AM [facility] ANION GAP 14.1 <18.0 mmol/L 04/11/2025 10:00 AM [facility] GLUCOSE 120(H) 70 - 99 mg/dL 04/11/2025 10:00 AM [facility] BUN 11 10 - 20 mg/dL 04/11/2025 10:00 AM [facility] CREATININE, BLOOD 0.67 0.60 - 1.00 mg/dL 04/11/2025 10:00 AM [facility] BUN/CREATININE RATIO 16 12 - 20 ratio 04/11/2025 10:00 AM [facility] TOTAL PROTEIN 7.0 6.0 - 8.0 g/dL 04/11/2025 10:00 AM [facility] ALBUMIN 4.0 3.5 - 5.0 g/dL 04/11/2025 10:00 AM T [facility] A/G RATIO 1.3 1.0 - 2.2 04/11/2025 10:00 AM [facility] CALCIUM 8.7 8.7 - 10.5 mg/dL 04/11/2025 10:00 AM [facility] T BILI 0.5 0.2 - 1.2 mg/dL 04/11/2025 10:00 AM [facility] SGOT (AST) 32 <43 U/L 04/11/2025 10:00 AM [facility] SGPT (ALT) 24 <56 U/L 04/11/2025 10:00 AM [facility] ALKALINE PHOSPHATASE 111 40 - 150 U/L 04/11/2025 10:00 AM [facility] IS THE PATIENT REQUIRED TO BE FASTING? No 04/11/2025 10:00 AM [facility] GFR, ESTIMATED >60 >=60 04/11/2025 10:00 AM CDT [facility] Comment: Creatinine Clearance is the preferred criteria for selecting drug dose adjustments in renally impaired patients. The GFR is provided as additional pertinent clinical information. GFR is reported in mL/min/1.73 sq m. Calculation based on the 2020 Chronic Kidney Disease Epidemiology Collaboration (CKD-EPI) equation refit without adjustment for race. GFR, EST. >60 >=60 10:00 AM CDT [facility] Comment: Creatinine Clearance is the preferred criteria for selecting drug dose adjustments in renally impaired patients. The GFR is provided as additional pertinent clinical information. GFR is reported in mL/min/1.73 sq m. Calculation based on the 2009 Chronic Kidney Disease Epidemiology Collaboration (CKD-EPI). GFR, EST. NONAFRICAN >60 >=60 04/11/2025 10:00 AM CDT [facility] Comment: Creatinine Clearance is the preferred criteria for selecting drug dose adjustments in renally impaired patients. The GFR is provided as additional pertinent clinical information. GFR is reported in mL/min/1.73 sq m. Calculation based on the 2009 Chronic Kidney Disease Epidemiology Collaboration (CKD-EPI). Blood Venipuncture / Unknown 04/11/2025 8:39 AM CDT 04/11/2025 9:34 AM CDT Milagro Means APRN, CNP CHEMISTRY ORDER JUVENAL Final Result [facility] [address] [place] [address] * GI IMAGING - COLONOSCOPY (05/28/2023 10:54 AM CDT) Zoila Corona MD IMG DIAGNOSTIC ORDERABLES Final Result * CHILO SCREENING BILATERAL DIGITAL W CAD W RITESH (08/18/2021 12:00 AM HOME SCHOOL COORDINATOR) Anatomical Region Laterality Modality breast Bilateral Mammography 08/18/2021 Milagro Means APRN, CNP IMG MAMMO ORDER JUVENAL Final Result * HEPATITIS PANEL ACUTE (AHP) (04/24/2019 6:40 AM CDT) HEPATITIS A IGM ANTIBODY NON DETECTED NON DETECTED 04/24/2019 10:22 PM CDT [facility] Comment: IGM Antibodies to HAV not detected. Does not exclude early acute or recovered HAV infection. HEP B CORE AB (IGM) NON DETECTED NON DETECTED 04/24/2019 10:22 PM CDT [facility] Comment: IGM anti-HBC not detected. Does not exclude the possibility of exposure to or infection with HBV. HEPATITIS B SURFACE ANTIGEN NON DETECTED NON DETECTED 04/24/2019 10:22 PM CDT [facility] Comment: A nonreactive test result does not exclude the possibility of exposure to or infection with Hepatitis B virus. A nonreactive test result in individuals with prior exposure to hepatitis B may be due to antigen levels below the detection limit of this assay or lack of antigen reactivity to the antibodies in this assay. hepatitis C antibody 0.09 <1 S/CO 04/24/2019 10:22 PM CDT [facility] Comment: Signal/Cutoff ratio < 0.79 is Nondetected Signal/Cutoff ratio 0.80-0.99 is Grayzone Signal/Cutoff ratio > 0.99 is Detected Supplemental assays are recommended if signal/cutoff ratio is >/=1.00. Signal/cutoff ratio result >/= 5.00 is 97% predictive of positivity for recombinant immunoblot assay (RIBA) and will be reported to the [place] Department of Public Health as required. Blood specimen (specimen) Venipuncture / Unknown 04/24/2019 6:40 AM CDT 04/24/2019 9:04 AM CDT us Milagro Means APRN, CNP HEMATOLOGY ARNULFO HURTADO Final Result [facility] [address] [place] [address], * PATHOLOGY CYTOLOGY SOFTWARE DEVELOPMENT ADVISOR (05/12/2016) Specimen of unknown material (specimen) us Not On File Provider PATHOLOGY/CYTOLOGY ORDERABL ES Final Result from Last 3 Months or Most Recently Relevant to Health Maintenance Insurance [facility] Care Teams Foundry Finisher Relationship Specialty Start Date End Date Milagro Means APRN, MARINE FARMER [address] [place] [address] PCP - General Advanced Practice Nurse 02/18/18 Anita Rodriguez, RANGE CONSERVATIONIST, MARINE FARMER Nurse Practitioner Obstetrics & Gynecology 11/24/15 James Plummer MD General Surgery 07/09/17 Eric Peres DPM Podiatry 03/29/22
--- OUTSIDE RECORDS SUMMARY | 2025-07-05 14:16 | XMS_ITS | Encounter Summary ---
Author Organization [facility] Address [address] [place] [address] Phone Care Team Providers Care Corporate Communications Specialist Name Role Phone Anita Rodriguez APRN, CASH SPECIALIST Unavailable [phone] James Plummer MD Unavailable [phone] Milagro Means APRN, CASH SPECIALIST [facility] Eric Peres DPCassie Unavailable Unavailable Reason for Visit * Reason Comments Medication Refill Encounter Details Date Type Department Care Team (Late st Contact Info) Description 07/24/2021 Refill [facility] [place] [address] [place] [address] Milagro Means APRN, CASH SPECIALIST [address] [place] [address] Medication Refill Social History Tobacco [...] st Contact Info) Description 10/12/2025 3:45 PM PATIENT CARRIER Office Visit [facility] - [place] [address] [place] [address] Milagro Means APRN, CASH SPECIALIST [address] [place] [address] documented as of this encounter Visit Diagnoses Diagnosis Mixed hyperlipidemia documented in this encounter Additional Health Concerns Infection Onset Date Last Indicated Resolved Time Respiratory Rule-Out 12/10/2023 12/10/2023 024 4:16 PM CDT COVID - 19 12/10/2023 12/10/2023 12/10/2023 4:07 PM CDT Assessment Noted Time PHQ-9 Depression Total Score: 0 02/12/20 21 8:00 AM CDT documented as of this encounter Care Teams Corporate Communications Specialist Relationship Specialty Start Date End Date Milagro Means APRN, CASH SPECIALIST [address] [place] [address] PCP - General Advanced Practice Nurse 02/18/18 Anita Rodriguez APRN, CASH SPECIALIST Nurse Practitioner Obstetrics & Gynecology 11/24/15 James Plummer MD General Surgery 07/09/17 Eric Peres DPM Podiatry 03/29/22 documented as of this encounter
[2025-07-05 14:27] VITALS: BP 119/82; PULSE 98; RESP 18; TEMP 36.1; O2SAT 100
--- NOTE | 2025-07-05 14:34 | ED.UPPEXIN ---
HPI - Extremity Injury (Upper) General Chief Complaint: Extremity Injury, Upper Stated Complaint: RT Hand Injury Source: patient and family ( ) Mode of arrival: ambulatory Limitations: no limitations History of Present Illness HPI narrative: 64-year-old female presents to [facility] accompanied by her for complaints of pain, swelling, bruising and abrasions to the dorsal aspect of her right hand since 1245 today. 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 Patient denies numbness or tingling. Patient is unsure of her last tetanus shot but reports that she is not wanting an updated tetanus shot at this time. Patient denies loss of conscious, headache, dizziness or blurred vision. MD complaint: injury to: right and hand Onset (ago): hour(s) (2) Other Extremity Injury: Right: hand Place: home Severity: mild Relieving factors: rest Exacerbating factors: movement of extremity Context: crush Associated symptoms: denies other symptoms Related Data Home Medications ?Medication ?Instructions ?Recorded ?Confirmed ?Last Taken ?Type semaglutide 2 mg/dose (8 mg/3 mL) mg subcut 07/05/25 Unknown History subcutaneous pen injector (Ozempic) Allergies Allergy/AdvReac Type Severity Reaction Status Date / Time codeine Allergy Mild Headache Verified 07/05/25 14:39 erythromycin base Allergy Mild Rash Verified 07/05/25 14:39 Review of Systems Constitutional: Constitutional: Denies chills, Denies fatigue, Denies fever(s) and Denies weakness ENT: Denies vertigo, Denies dizziness and Denies epistaxis Respiratory: Respiratory: Denies cough, Denies dyspnea and Denies wheezing Gastrointestinal: Gastrointestinal: Denies diarrhea, Denies nausea and Denies vomiting Musculoskeletal: Musculoskeletal: Reports arthralgias and Reports joint swelling Comments: Pain, swelling and bruising dorsal aspect of right hand Integumentary/Breasts: Comments: Abrasions noted to right hand Neurologic: Denies vertigo, Denies dizziness, Denies syncope and Denies headache(s) PMFSH Comments At time of signature, I agree with nursing past medical, surgical, social and family history. There is no relevant family history pertinent to the presenting complaint. Exam Const: General: healthy appearing and no acute distress Nutritional Appearance: well nourished Orientation/consciousness: patient oriented x3 Limitations: no limitations HENMT: Head: normal to inspection Eyes: Conjunctivae: conjunctivae normal Resp: Effort & Inspection: normal respiratory effort and not labored Auscultation: clear to auscultation bilaterally, no crackles, no rales, no rhonchi and no wheezes Cardio: Rate: regular rate Rhythm: regular rhythm Heart sounds: no murmurs Skin: General skin exam: normal color Other: multiple superficial abrasions noted to dorsal aspect of right hand measuring 1.5 cm and 0.5 cm. There is no active bleeding or drainage noted. Neuro: General: patient oriented x3 and moves all extremities Speech: normal speech Gait exam (Neuro): Normal gait present Extrem: Other: Bruising, swelling and superficial abrasions noted to dorsal aspect of right hand, more to lateral aspect. Pulses are within normal limits. Patient has full range of motion to right hand Psych: Affect: normal affect Attitude: cooperative Course Course Level of Care: Express Care Visit Vital Signs Vital signs: Vital Signs Temperature 36.1 C L 07/05/25 14:27 Pulse Rate 98 07/05/25 14:27 Respiratory Rate 18 07/05/25 14:27 Blood Pressure 119/82 07/05/25 14:27 Pulse Oximetry 100 07/05/25 14:27 Oxygen Delivery Room Air 07/05/25 14:27 Temperature 36.1 C L 07/05/25 14:27 Pulse Rate 98 07/05/25 14:27 Respiratory Rate 18 07/05/25 14:27 Blood Pressure 119/82 07/05/25 14:27 Pulse Oximetry 100 07/05/25 14:27 Oxygen Delivery Room Air 07/05/25 14:27 MDM - Extremity Injury (Upper) MDM Narrative Medical decision making narrative: Superficial abrasions were cleansed with normal saline and wound cleanser. Triple antibiotic ointment and dressing were then applied. Patient agrees to monitor closely for signs and symptoms of infection. Patient agrees to apply antibiotic ointment as prescribed. Rice therapy discussed with patient. Patient agrees to follow-up with primary care provider if symptoms not improved. X-ray results discussed with patient. 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 Findings: No acute fracture or malalignment. Severe degenerative changes of the first metacarpal carpal joint Soft tissues unremarkable. Impression: No acute fracture or malalignment. Reviewed, dictated and finalized at location P. ENT DRIVING INSTRUCTOR Please be advised this is a medical document. It is intended for [id number] communication. It is written in medical language and may contain unfamiliar abbreviations or verbiage. Medical documents are intended to carry relevant information, facts as evident, and the clinical opinion of the practitioner at the time of the encounter. This report may have been done utilizing a voice recognition system. Attempts have been made to correct errors. However, there may be uncorrected grammatical, spelling, and recognition errors present. The file time of this note does not necessarily represent the time of service. Dictated By: Simone Arnett MD 07/05/25 1510 Signed By: <Electronically signed by Simone Arnett MD in OV> 07/05/25 1510 Critical Care Time Critical Care Time Critical Care Time: No Discharge Plan Discharge Clinical Impression: Hand pain, right Abrasion of hand, right Qualifiers: Encounter type: initial encounter Qualified Code(s): S60.511A - Abrasion of right hand, initial encounter Patient Disposition: Home Condition: Stable Instructions: Abrasion (ED), Musculoskeletal Pain (ED) Additional Instructions: [id number] Tylenol as needed for pain Apply antibiotic ointment to area of abrasion twice a day for the next week Monitor closely for signs and symptoms of infection including redness, swelling, warmth, drainage or fever Wear Neal wrap to right hand as needed Follow-up with primary care provider if symptoms not improved Proceed to the emergency room if symptoms worsen Patient Language: Pashto Prescriptions: New mupirocin [Centany] 2 % ointment 1 applic topical BID 7 Days Qty: 15 0RF No Action Ozempic 2 mg/dose (8 mg/3 mL) pen injector SUBCUT Follow-up/Referrals: Jordon,Bridger Calixto MD [Primary Care Provider, Unknown] Time of Disposition: 15:16
== END 2025-07-05 15:21 | disposition home or self-care (01) ==
PROVIDERS: Emergency Provider Nurse Practitioner Family; PCP Internal Medicine
DX: S60.511A Abrasion of right hand, initial encounter (principal); W20.8XXA Other cause of strike by thrown, projected or falling object, initial encounter
CPT/HCPCS: 73130; 99203; G0463